=== PATIENT | female | born 1995 | race Two or more races ===

== ENCOUNTER 2019-07-26 23:07 | Emergency (ER) | payer MEDICAID ==
[~2019-07-26] VITALS: Ht 162.6 cm; Wt 77.1 kg
[2019-07-27 00:23] LABS: Basophils # (auto) 0.1 10 ^3/uL (0-0.2); Basophils % (auto) 0.9 % (0.0-2.0); Eosinophils # (auto) 0.2 10 ^3/uL (0-0.8); Eosinophils % (auto) 1.3 % (0.0-7.0); Hematocrit 41.2 % (36.0-46.0); Hemoglobin 13.9 g/dL (12.2-16.2); Lymphocytes % (auto) 23.1 % (10.0-50.0); Mean Corpuscular Hemoglobin 30.4 pg (28.0-32.0); Mean Corpuscular Hgb Conc. 33.7 g/dL (32.0-36.0); Mean Corpuscular Volume 90.3 fL (80.0-100.0); Monocytes # (auto) 0.8 10 ^3/uL (0-1.3); Monocytes % (auto) 5.8 % (0.0-12.0); Neutrophils % (auto) 68.9 % (37.0-80.0); Platelet Count (auto) 270 10^3/uL (140-450); Red Blood Cells 4.56 10^6/uL (4.0-5.20); White Blood Cell 13.1 10^3/uL (4.4-10.8)
[2019-07-27 00:35] LABS: Urine Amorphous Crystal FEW /hpf (None Seen); Urine Bacteria MOD /hpf (None Seen); Urine Blood Negative /uL (Negative); Urine Specific Gravity 1.015 (1.001-1.035); Urine WBC 51 /hpf (0 - 5)
[2019-07-27 00:38] LABS: INR 1.02 (0.9-1.15); Partial Thromboplastin Time 29.3 sec (23.64-32.05)
[2019-07-27 00:42] LABS: Albumin 3.4 g/dL (3.4-5.0); BUN/Creatinine Ratio 12.5; Calcium 8.7 mg/dL (8.5-10.1); Magnesium 2.1 mg/dL (1.6-2.6); Potassium 3.4 mmol/L (3.5-5.1)
[2019-07-27 00:44] LABS: Bilirubin, Total 0.3 mg/dL (0.2-1.0); Total Protein 7.5 g/dL (6.4-8.2)
[2019-07-27] MEDS ORDERED: ACETAMINOPHEN 325 MG TAB PO ONE (00:45)
[2019-07-27 03:00] VITALS: BP 97/53
== END 2019-07-27 03:31 | disposition home or self-care (01) ==
LOC: EDBD 23:07 → ER 23:09
DX: O23.41 Unspecified infection of urinary tract in pregnancy, first trimester (principal); O20.9 Hemorrhage in early pregnancy, unspecified; Z3A.01 Less than 8 weeks gestation of pregnancy
CPT/HCPCS: 36415; 76801; 80053; 81001; 81025; 82150; 83690; 83735; 84702; 85025; 85610; 85730

== ENCOUNTER 2023-10-01 19:04 | Emergency (ER) | payer MEDICAID, OTHER ==
[~2023-10-01] VITALS: Ht 165.1 cm; Wt 108.0 kg
[2023-10-01] MEDS ORDERED: CEPH500C PO (21:55)
[2023-10-01] MEDS ORDERED: IBUP1TAB5 PO (21:55)
[2023-10-01] MEDS ORDERED: MUPI2OIN2 EX (21:55)
[2023-10-01] MEDS: NEOMYCIN-BACITRACIN-POLYM UNITDOSE PKG TOP OINT TOP ONE (23:05)
[2023-10-01] MEDS: IBUPROFEN 800 MG TAB PO ONE (23:05)
[2023-10-01 23:10] VITALS: BP 116/78; PULSE 88; RESP 18; TEMP 98.6
[2023-10-01 23:14] VITALS: O2SAT 98
== END 2023-10-01 23:16 | disposition home or self-care (01) ==
LOC: ER 19:04
DX: S53.492A Other sprain of left elbow, initial encounter (principal); W01.0XXA Fall on same level from slipping, tripping and stumbling without subsequent striking against object, initial encounter; Y93.89 Activity, other specified; Y92.89 Other specified places as the place of occurrence of the external cause; Y99.0 Civilian activity done for income or pay
CPT/HCPCS: 73080